=== PATIENT | male | born 1940 | race Caucasian/White ===

== ENCOUNTER 2017-11-28 03:41 | Outpatient (CLI) | payer MEDICARE, BC ==
[~2017-11-28 03:41] MED LIST: ADV50250 IH; ALBU18HF2 IH; ASPI-1265 PO; ATOR20TA PO; GABA-341 PO; NORCO10T PO; SULI150T50 PO
== END 2017-11-28 23:59 | disposition home or self-care (01) ==
LOC: DIABETIC 03:41
PROVIDERS: ATTEND Family Medicine
DX: E11.9 Type 2 diabetes mellitus without complications (principal); J44.9 Chronic obstructive pulmonary disease, unspecified; F17.200 Nicotine dependence, unspecified, uncomplicated
CPT/HCPCS: G0109

== ENCOUNTER 2017-12-12 02:52 | Outpatient (CLI) | payer MEDICARE, BC | END 2017-12-12 23:59 | disposition home or self-care (01) | LOC: DIABETIC 02:52 | PROVIDERS: ATTEND Family Medicine | DX: E11.9 Type 2 diabetes mellitus without complications (principal); J44.9 Chronic obstructive pulmonary disease, unspecified; F17.200 Nicotine dependence, unspecified, uncomplicated | CPT/HCPCS: G0109 ==

== ENCOUNTER 2018-01-07 01:53 | Outpatient (CLI) | payer MEDICARE, BC | END 2018-01-07 23:59 | disposition home or self-care (01) | LOC: DIABETIC 01:53 | PROVIDERS: ATTEND Family Medicine | DX: E11.9 Type 2 diabetes mellitus without complications (principal) | CPT/HCPCS: G0108 ==

== ENCOUNTER 2019-07-29 16:17 | Observation (INO) | payer MEDICARE, BC ==
[~2019-07-29] VITALS: Ht 152.4 cm; Wt 71.2 kg
[2019-07-29 16:54] LABS: BASOPHILS # (AUTO) 0.1 X10'3 (0-0.2); BASOPHILS % (AUTO) 0.9 % (0-1); EOSINOPHILS # (AUTO) 0.2 X10'3 (0-0.9); HEMATOCRIT 47.1 % (42.0-52.0); HEMOGLOBIN 15.9 g/dl (14.0-17.9); LYMPHOCYTES # (AUTO) 2.6 X10'3 (1.1-4.8); LYMPHOCYTES % (AUTO) 25.6 % (21-51); MEAN CORPUSCULAR HEMOGLOBIN 32.1 PG (27.0-31.0); MEAN CORPUSCULAR HGB CONC 33.7 g/dL (33.0-36.5); MEAN CORPUSCULAR VOLUME 95.3 FL (78-98); MEAN PLATELET VOLUME 8.8 FL (7.4-10.4); MONOCYTES # (AUTO) 0.8 X10'3 (0-0.9); MONOCYTES % (AUTO) 7.8 % (2-12); NEUTROPHILS # (AUTO) 6.5 X10'3 (1.8-7.7); NEUTROPHILS % (AUTO) 63.7 % (42-75); PLATELET COUNT 186 X10'3 (140-440); RED BLOOD COUNT 4.95 X10'6 (4.70-6.10); RED CELL DISTRIBUTION WIDTH 14.7 % (11.5-14.5); WHITE BLOOD COUNT 10.1 X10'3 (4.5-11.0)
[2019-07-29 17:03] LABS: PARTIAL THROMBOPLASTIN TIME 29 SECONDS (22-32)
[2019-07-29 17:05] LABS: ALANINE AMINOTRANSFERASE 18 U/L (12-78); ALBUMIN 3.8 G/DL (3.4-5.0); ALBUMIN/GLOBULIN RATIO 1.1 (1.1-1.5); ALKALINE PHOSPHATASE 90 IU/L (46-116); ANION GAP 8 (8-16); ASPARTATE AMINO TRANSFERASE 14 U/L (10-37); BILIRUBIN,TOTAL 0.6 MG/DL (0.1-1.0); BLOOD UREA NITROGEN 18 MG/DL (7-18); BUN/CREATININE RATIO 23.1 (5.4-32.0); CHLORIDE 104 MMOL/L (99-107); CREATININE 0.78 MG/DL (0.60-1.10); GLUCOSE 131 MG/DL (70-104); SODIUM 139 MMOL/L (135-145); TOTAL CARBON DIOXIDE 27.5 MMOL/L (24-32); TOTAL PROTEIN 7.4 G/DL (6.4-8.2); eGFR > 90 ML/MIN
[2019-07-29 18:13] LABS: MAGNESIUM 1.8 MG/DL (1.5-2.4); PHOSPHORUS 3.2 MG/DL (2.3-4.5)
[2019-07-29] MEDS ORDERED: dextrose 50%-water 50ml dispensing syringe IV PRN ×2 (19:45)
[2019-07-29] MEDS ORDERED: dextrose ORAL solution 15 GM/59 ML bottle PO PRN ×2 (19:45)
[2019-07-29] MEDS ORDERED: magnesium 4gm in 100ml NS 100 ML IV PRN (19:45)
[2019-07-29] MEDS ORDERED: magnesium Cl slow-release 64mg tablet PO PRN (19:45)
[2019-07-29] MEDS ORDERED: potassium CL 10mEq/100ml bag 100 ML IV PRN ×2 (19:45)
[2019-07-29] MEDS ORDERED: mag hydrox/Alum hydrox/simeth 30ml oral suspension PO PRN (19:45)
[2019-07-29] MEDS ORDERED: ondansetron/PF 4mg/2ml inj IV PRN (19:45)
[2019-07-29] MEDS ORDERED: acetaminophen 325mg tablet PO PRN (19:45)
[2019-07-29] MEDS ORDERED: insulin Lispro (HumaLOG) vial - multi-dose SQ SCH (19:45)
[2019-07-29] MEDS ORDERED: glucagon, human recombinant 1mg kit SUBCUT PRN (19:45)
[2019-07-29] MEDS ORDERED: potassium Cl 20 mEq SR tablet PO PRN ×2 (19:45)
[2019-07-29] MEDS ORDERED: magnesium 2GM in 50ml NS 50 ML IV PRN (19:45)
[2019-07-29] MEDS ORDERED: MESSAGE TO PHARMACY PO ONE (19:45)
[2019-07-29] MEDS ORDERED: DOXE10CA3 PO (20:04)
[2019-07-29] MEDS ORDERED: GABA-532 PO (20:04)
[2019-07-29 20:05] LABS: HEMOGLOBIN A1C 6.6 % (4.5-6.2)
--- NOTE | 2019-07-29 20:28 | NUR ---
Patient in room ED 5. I have received report from Clem NG and had the opportunity to ask questions and awaiting arrival of patient to the PCU unit.
--- NOTE | 2019-07-29 20:30 | NUR ---
Patient arrived from the ER at this time. He is alert and oriented and able to make his needs known. He was able to ambulate from the wheelchair to the bed with just standby assistance but he is steady on his feet. He denies having pain. His heart rate currently in the 40's and he is completely asymptomatic with this. He does have pacer pads in place and hooked up to the zoll monitor. His blood pressure is elevated at this time at 172/74. Notification to MD. Patient oriented to room and how to use call light system. Will continue to monitor.
[2019-07-29] MEDS ORDERED: METF-436 PO (20:33)
[2019-07-29] MEDS ORDERED: SULI150T50 PO (20:33)
[2019-07-29 20:35] VITALS: BP 172/74
--- NOTE | 2019-07-29 20:53 | NUR ---
PAGER ID: [phone] MESSAGE: Patient Joselito Minaya RM [id number] Patient just up from the ER and blood pressure is 172/74. Would you like him to get anything for this? Thank you. Dina NG ext. [phone]
[2019-07-29] MEDS ORDERED: insulin glargine (Lantus) pen - multi-dose SQ SCH (21:00)
[2019-07-29] MEDS ORDERED: hydrALAZINE 20mg/ml inj. IV ONE (21:10)
[2019-07-29] MEDS: normal saline 1000ml 1,000 ML IV SCH (21:15)
[2019-07-29] MEDS ORDERED: ASPI-611 PO (21:46)
[2019-07-29] MEDS ORDERED: KRIL1CAP29 PO (21:46)
[2019-07-29] MEDS ORDERED: GING550C4 PO (21:46)
[2019-07-29] MEDS ORDERED: TURM538C PO (21:46)
[2019-07-29] MEDS ORDERED: DIPH25CA83 PO (21:46)
[2019-07-29] MEDS ORDERED: MELA3TAB64 PO (21:46)
[2019-07-29] MEDS ORDERED: FLAX100032 PO (21:46)
--- NOTE | 2019-07-29 22:42 | NUR ---
patch to right eye from cataract surgery today, unable to assess. Addendum: 07/29/19 at 1744 by Dina Swenson RN Amended: Links added.
[2019-07-29 23:00] VITALS: BP 170/59
[2019-07-30] MEDS ORDERED: heparin, porcine 5000 units/ml vial SQ SCH
[2019-07-30 00:18] VITALS: BP 157/62
--- NOTE | 2019-07-30 00:19 | NUR ---
Blood pressure down to 157/62 after PRN Hydralazine.
[2019-07-30 03:00] VITALS: BP 171/58
--- NOTE | 2019-07-30 03:27 | NUR ---
PAGER ID: [phone] MESSAGE: Patient Joselito Minaya Rm [id number] Blood pressure elevated again at 171/58 with a repeat of 170/65. Do you want him to have anything else? Thank you. Dina NG ext. [phone]
[2019-07-30] MEDS: hydrALAZINE 20mg/ml inj. IV PRN ×2 (03:37→12:06)
[2019-07-30] MEDS ORDERED: Melatonin 3mg tablet PO PRN (04:05)
[2019-07-30 05:17] LABS: BASOPHILS # (AUTO) 0.1 X10'3 (0-0.2); BASOPHILS % (AUTO) 0.5 % (0-1); EOSINOPHILS % (AUTO) 0.4 % (0-6); HEMATOCRIT 47.9 % (42.0-52.0); HEMOGLOBIN 16.2 g/dl (14.0-17.9); LYMPHOCYTES # (AUTO) 2.2 X10'3 (1.1-4.8); LYMPHOCYTES % (AUTO) 18.5 % (21-51); MEAN CORPUSCULAR HEMOGLOBIN 32.2 PG (27.0-31.0); MEAN CORPUSCULAR HGB CONC 33.9 g/dL (33.0-36.5); MEAN PLATELET VOLUME 9.2 FL (7.4-10.4); MONOCYTES # (AUTO) 0.9 X10'3 (0-0.9); MONOCYTES % (AUTO) 7.1 % (2-12); NEUTROPHILS # (AUTO) 8.8 X10'3 (1.8-7.7); NEUTROPHILS % (AUTO) 73.5 % (42-75); PLATELET COUNT 189 X10'3 (140-440); RED BLOOD COUNT 5.05 X10'6 (4.70-6.10); RED CELL DISTRIBUTION WIDTH 14.5 % (11.5-14.5)
[2019-07-30 05:24] LABS: ALANINE AMINOTRANSFERASE 18 U/L (12-78); ALBUMIN 3.7 G/DL (3.4-5.0); ALKALINE PHOSPHATASE 86 IU/L (46-116); ANION GAP 13 (8-16); ASPARTATE AMINO TRANSFERASE 14 U/L (10-37); BILIRUBIN,TOTAL 0.7 MG/DL (0.1-1.0); BLOOD UREA NITROGEN 16 MG/DL (7-18); CALCIUM 8.9 MG/DL (8.5-10.1); CHLORIDE 106 MMOL/L (99-107); CREATININE 0.64 MG/DL (0.60-1.10); GLUCOSE 132 MG/DL (70-104); POTASSIUM 3.5 MMOL/L (3.5-5.1); SODIUM 141 MMOL/L (135-145); TOTAL CARBON DIOXIDE 21.9 MMOL/L (24-32); TOTAL PROTEIN 7.3 G/DL (6.4-8.2); eGFR > 90 ML/MIN
[2019-07-30 05:28] LABS: CHOL/HDL RATIO 3.5 (0.00-4.99); CHOLESTEROL 155 MG/DL (0-200); HDL CHOLESTEROL 44 MG/DL (35-60); LDL CHOLESTEROL 97 MG/DL (50-100); MAGNESIUM 1.7 MG/DL (1.5-2.4); TRIGLYCERIDES 79 MG/DL (20-135)
--- NOTE | 2019-07-30 05:42 | NUR ---
[place] documentation: I have reviewed and agree with all interventions, assessments performed and documented by Leti NG. [place]ee Medication Administration: For this medication-pass time frame, all medication were reviewed, dispensed, administered and documented per hospital policy by Leti NG.
[2019-07-30 06:00] VITALS: BP 171/64
--- NOTE | 2019-07-30 06:24 | NUR ---
Problems reprioritized. Patient report given, questions answered & plan of care reviewed with Delmis NG.
[2019-07-30] MEDS: normal saline 1000ml 1,000 ML IV SCH (06:29)
[2019-07-30] MEDS ORDERED: GINGER ROOT PO SCH (08:00)
[2019-07-30] MEDS ORDERED: K and/or MAG REPLACEMENT MC SCH (08:00)
[2019-07-30] MEDS ORDERED: aspirin 81mg tablet.DR PO SCH (08:00)
[2019-07-30] MEDS ORDERED: sulindac 150mg tablet PO SCH (08:00)
[2019-07-30] MEDS ORDERED: DHA PO SCH (08:00)
[2019-07-30] MEDS ORDERED: EPA PO SCH (08:00)
[2019-07-30] MEDS ORDERED: doxepin 10mg capsule PO SCH ×2 (08:00)
[2019-07-30] MEDS ORDERED: KRILL PO SCH (08:00)
[2019-07-30] MEDS ORDERED: LIPIDS PO SCH (08:00)
[2019-07-30] MEDS ORDERED: albuterol 2.5 MG/3 ML nebule NEB SCH (08:00)
[2019-07-30] MEDS ORDERED: non-formulary drug (Albuterol Sulfate (Ventolin Hfa) 2 PUFFS) IH SCH (08:00)
[2019-07-30] MEDS ORDERED: budesonide 0.5mg/2ml UD nebule IH SCH (08:00)
[2019-07-30] MEDS ORDERED: FLAXSEED OIL PO SCH (08:00)
[2019-07-30] MEDS ORDERED: gabapentin 300mg capsule PO SCH (08:00)
[2019-07-30] MEDS ORDERED: OMEGA PO SCH (08:00)
[2019-07-30] MEDS ORDERED: lisinopril 5mg tablet PO ONE (09:20)
--- NOTE | 2019-07-30 09:22 | NUR ---
Received orders from Dr. Zarco for Lisinopril x1 now for HTN and add on PBNP lab test
--- NOTE | 2019-07-30 09:54 | NUR ---
DM consult: Patient's A1c is 6.6; DM education not warranted at this time. Will continue to follow. Addendum: 07/30/19 at [address] Amended: Links added.
[2019-07-30] MEDS ORDERED: furosemide 20 MG/2 ML vial IV ONE (09:55)
[2019-07-30] MEDS ORDERED: FURO-150 PO (09:58)
[2019-07-30] MEDS ORDERED: LISI-604 PO (09:58)
--- NOTE | 2019-07-30 13:00 | NUR ---
pt stable for discharge per md orders, discharge instructions reviewed w/ pt and daughter and all questions answered, new medication prescription called in to [facility] [address] per pt preference, tele monitor 50 returned, PIV dc'ed and clean dry dressing in place, pt wheeled down to [facility] w/ hospital staff, pt discharge at 1230 w/ daughter in private vehicle, all belongings w/ pt at time of discharge
[2019-07-30] MEDS ORDERED: atorvastatin 20mg tablet PO SCH (21:00)
== END 2019-07-30 13:05 | disposition home health service (06) ==
LOC: ER 16:18 → ED HOLD 19:43 → EDBEDREQ 20:14 → PCU 3S 20:38
PROVIDERS: ADMIT Family Medicine; ATTEND Internal Medicine
DX: R00.1 Bradycardia, unspecified (principal); I10 Essential (primary) hypertension; E11.9 Type 2 diabetes mellitus without complications; I44.2 Atrioventricular block, complete; E78.5 Hyperlipidemia, unspecified; J44.9 Chronic obstructive pulmonary disease, unspecified; E78.00 Pure hypercholesterolemia, unspecified; Z79.82 Long term (current) use of aspirin; Z79.84 Long term (current) use of oral hypoglycemic drugs; Z79.899 Other long term (current) drug therapy; Z87.891 Personal history of nicotine dependence; Z98.41 Cataract extraction status, right eye
CPT/HCPCS: 36415; 71045; 80053; 80061; 82948; 83036; 83735; 83880; 84100; 84443; 84484; 85025; 85610; 85730; 87081; 93005; 93306; 94640; 94760; 96374; 96375; 96376; 99284; G0378; J0360; J1940; J7030; J1815; J7626

== ENCOUNTER 2021-03-14 22:21 | Inpatient (IN) | payer MEDICARE, BC ==
[~2021-03-14] VITALS: Ht 152.4 cm; Wt 70.0 kg
[~2021-03-14 22:21] MED LIST changes: -ASPI-1265 PO; +ASPI-611 PO; +DIPH25CA83 PO; +DOXE10CA3 PO; +FLAX100032 PO; +FURO-150 PO; -GABA-341 PO; +GABA-532 PO; +GING550C4 PO; +KRIL1CAP29 PO; +LISI-790 PO; +MELA3TAB39 PO; +METF-436 PO; +TURM538C PO
[2021-03-14] MEDS ORDERED: normal saline 1000ml 1,000 ML IV ONE ×2 (22:35→23:25)
[2021-03-14 22:53] LABS: BASOPHILS # (AUTO) 0.1 X10'3 (0-0.2); BASOPHILS % (AUTO) 0.6 % (0-1); EOSINOPHILS # (AUTO) 0.2 X10'3 (0-0.9); EOSINOPHILS % (AUTO) 1.4 % (0-6); HEMATOCRIT 33.6 % (42.0-52.0); LYMPHOCYTES # (AUTO) 1.2 X10'3 (1.1-4.8); LYMPHOCYTES % (AUTO) 7.9 % (21-51); MEAN CORPUSCULAR HEMOGLOBIN 31.9 PG (27.0-31.0); MEAN CORPUSCULAR HGB CONC 32.7 g/dL (33.0-36.5); MEAN CORPUSCULAR VOLUME 97.6 FL (78-98); MEAN PLATELET VOLUME 8.7 FL (7.4-10.4); MONOCYTES # (AUTO) 0.9 X10'3 (0-0.9); MONOCYTES % (AUTO) 6.1 % (2-12); NEUTROPHILS # (AUTO) 12.9 X10'3 (1.8-7.7); PLATELET COUNT 196 X10'3 (140-440); RED BLOOD COUNT 3.45 X10'6 (4.70-6.10); RED CELL DISTRIBUTION WIDTH 13.8 % (11.5-14.5); WHITE BLOOD COUNT 15.3 X10'3 (4.5-11.0)
--- NOTE | 2021-03-14 23:00 | NUR ---
PT TO CT WITH RN AND EXECUTIVE HOUSEKEEPER
[2021-03-14 23:05] LABS: ALANINE AMINOTRANSFERASE 14 U/L (12-78); ALBUMIN 3.2 G/DL (3.4-5.0); ALBUMIN/GLOBULIN RATIO 0.9 (1.1-1.5); ALKALINE PHOSPHATASE 100 IU/L (46-116); ANION GAP 16 (8-16); ASPARTATE AMINO TRANSFERASE 12 U/L (10-37); BILIRUBIN,TOTAL 0.3 MG/DL (0.1-1.0); BLOOD UREA NITROGEN 95 MG/DL (7-18); BUN/CREATININE RATIO 17.6 (5.4-32.0); CHLORIDE 101 MMOL/L (99-107); CREATININE 5.41 MG/DL (0.60-1.10); GLUCOSE 160 MG/DL (70-104); MAGNESIUM 1.7 MG/DL (1.5-2.4); POTASSIUM 5.7 MMOL/L (3.5-5.1); SODIUM 135 MMOL/L (135-145); TOTAL CARBON DIOXIDE 17.6 MMOL/L (24-32); TOTAL PROTEIN 6.6 G/DL (6.4-8.2); eGFR 10 ML/MIN
--- NOTE | 2021-03-14 23:08 | NUR ---
PT BACK FROM CT
[2021-03-14] MEDS ORDERED: calcium chloride 100 MG/1 ML inj IV ONE (23:35)
[2021-03-14 23:45] LABS: TROPONIN I < 0.04 NG/ML (0.0-0.05)
[2021-03-15] MEDS ORDERED: morphine 2 MG/ML inj. syringe IV PRN ×2 (00:35)
[2021-03-15] MEDS ORDERED: ondansetron/PF 4mg/2ml inj IV PRN (00:35)
[2021-03-15] MEDS ORDERED: dextrose 50%-water 50ml dispensing syringe IV PRN ×2 (00:35)
[2021-03-15] MEDS ORDERED: LIDOcaine 2% 10ml TOPICAL JELLY (Urojet) TP ONE (00:35)
[2021-03-15] MEDS ORDERED: magnesium hydroxide 30ml (MOM) UD suspension PO PRN (00:35)
[2021-03-15] MEDS ORDERED: mag hydrox/Alum hydrox/simeth 30ml oral suspension PO PRN (00:35)
[2021-03-15] MEDS ORDERED: dextrose ORAL solution 15 GM/59 ML bottle PO PRN ×2 (00:35)
[2021-03-15] MEDS ORDERED: acetaminophen 325mg tablet PO PRN ×2 (00:35)
[2021-03-15] MEDS ORDERED: glucagon, human recombinant 1mg kit SUBCUT PRN (00:35)
[2021-03-15] MEDS ORDERED: MESSAGE TO PHARMACY PO ONE (00:35)
[2021-03-15 01:09] LABS: HEMOGLOBIN A1C 7.8 % (4.5-6.2)
[2021-03-15] MEDS ORDERED: normal saline 1000ML IV soln IVB ONE (01:20)
[2021-03-15] MEDS ORDERED: calcium chloride 100 MG/1 ML inj IV ONE (01:20)
[2021-03-15 01:28] LABS: CLARITY,URINE CLEAR (Clear); COLOR,URINE YELLOW (Yellow); GLUCOSE, URINE NEGATIVE (Neg); KETONES,URINE NEGATIVE (Neg); LEUKOCYTE ESTERASE ,URINE NEGATIVE (Neg); NITRITES, URINE NEGATIVE (Neg); OCCULT BLOOD,URINE NEGATIVE (Neg); PH,URINE 5.5 (4.8-8.0); PROTEIN,URINE NEGATIVE (Neg); UROBILINOGEN,URINE 0.2 E.U/dL (0.2-1.0)
[2021-03-15] MEDS: normal saline 1000ml 1,000 ML IV SCH ×3 (01:33→20:13)
[2021-03-15 01:39] LABS: UA COLLECTION TYPE VOIDED
[2021-03-15] MEDS ORDERED: normal saline 1000ml 1,000 ML IV ONE (02:45)
--- NOTE | 2021-03-15 04:35 | NUR ---
placed on telemetry. number 49. oriented to room 4693S. skin check. call light in reach. noted BP 101/47 HR 86. assumed care of patient.
[2021-03-15 04:37] VITALS: BP 101/47
[2021-03-15 06:00] VITALS: BP 92/45
--- NOTE | 2021-03-15 06:10 | NUR ---
received report from shirley villa
[2021-03-15] MEDS: heparin, porcine 5000 units/ml vial SQ SCH ×2 (07:35→20:15)
--- NOTE | 2021-03-15 09:22 | NUR ---
DM Consult: Pt A1C 7.8 appropriate given age. Addendum: 03/15/21 at [address] Amended: Links added.
[2021-03-15 10:00] VITALS: BP 96/48
[2021-03-15] MEDS ORDERED: METO-395 PO (10:47)
[2021-03-15] MEDS ORDERED: HYDR-3972 PO (10:47)
[2021-03-15] MEDS ORDERED: METF-438 PO (10:47)
[2021-03-15] MEDS ORDERED: FURO40TA4 PO (10:47)
[2021-03-15] MEDS ORDERED: ALBU18HF2 PO (10:47)
[2021-03-15] MEDS ORDERED: SULI150T50 PO (10:47)
[2021-03-15] MEDS ORDERED: DOXE6TAB4 PO (10:47)
[2021-03-15] MEDS ORDERED: GABA300C PO (10:47)
[2021-03-15] MEDS ORDERED: SACU1TAB PO (10:47)
[2021-03-15] MEDS ORDERED: SITA50TA7 PO (10:47)
[2021-03-15] MEDS ORDERED: ATOR20TA66 PO (10:47)
[2021-03-15] MEDS ORDERED: POTA20TA19 PO (10:47)
[2021-03-15] MEDS ORDERED: FLUT1BLS13 INH (10:47)
[2021-03-15] MEDS ORDERED: SPIR25TA5 PO (10:47)
--- NOTE | 2021-03-15 11:01 | NUR ---
has seen the green skin under halter monitor, continue to monitor
[2021-03-15] MEDS: HYDROcodone/acetaminophen 10/325mg tab PO PRN (11:35)
[2021-03-15] MEDS: atorvastatin 20mg tablet PO SCH (11:35)
[2021-03-15] MEDS: albuterol 2.5 MG/3 ML nebule NEB SCH ×2 (15:00→19:14)
[2021-03-15 16:24] LABS: BASOPHILS # (AUTO) 0.1 X10'3 (0-0.2); BASOPHILS % (AUTO) 0.7 % (0-1); EOSINOPHILS # (AUTO) 0.1 X10'3 (0-0.9); EOSINOPHILS % (AUTO) 1.4 % (0-6); HEMATOCRIT 31.3 % (42.0-52.0); HEMOGLOBIN 10.5 g/dl (14.0-17.9); LYMPHOCYTES % (AUTO) 12.1 % (21-51); MEAN CORPUSCULAR HEMOGLOBIN 32.8 PG (27.0-31.0); MEAN CORPUSCULAR HGB CONC 33.5 g/dL (33.0-36.5); MEAN CORPUSCULAR VOLUME 98.1 FL (78-98); MEAN PLATELET VOLUME 8.7 FL (7.4-10.4); MONOCYTES # (AUTO) 0.8 X10'3 (0-0.9); MONOCYTES % (AUTO) 9.3 % (2-12); NEUTROPHILS # (AUTO) 6.2 X10'3 (1.8-7.7); NEUTROPHILS % (AUTO) 76.5 % (42-75); PLATELET COUNT 150 X10'3 (140-440); RED BLOOD COUNT 3.19 X10'6 (4.70-6.10); WHITE BLOOD COUNT 8.1 X10'3 (4.5-11.0)
[2021-03-15 16:41] LABS: ALBUMIN 2.9 G/DL (3.4-5.0); ANION GAP 14 (8-16); BLOOD UREA NITROGEN 74 MG/DL (7-18); BUN/CREATININE RATIO 20.8 (5.4-32.0); CALCIUM 8.2 MG/DL (8.5-10.1); CHLORIDE 109 MMOL/L (99-107); CREATININE 3.55 MG/DL (0.60-1.10); GLUCOSE 130 MG/DL (70-104); POTASSIUM 4.8 MMOL/L (3.5-5.1); SODIUM 140 MMOL/L (135-145); TOTAL CARBON DIOXIDE 16.8 MMOL/L (24-32); eGFR 17 ML/MIN
--- NOTE | 2021-03-15 18:27 | NUR ---
gave report to shirley reynoso
--- NOTE | 2021-03-15 18:32 | NUR ---
Pt. requesting breathing tx. Paged RT.
[2021-03-15 19:00] VITALS: BP 101/50
[2021-03-15] MEDS: budesonide 0.5mg/2ml UD nebule IH SCH (19:14)
[2021-03-15] MEDS ORDERED: [UNRECOGNIZED DRUG - OTHER] INH SCH (20:00)
[2021-03-15] MEDS ORDERED: FLUTICASONE PROPION INH SCH (20:00)
[2021-03-15] MEDS ORDERED: SALMETEROL INH SCH (20:00)
[2021-03-15] MEDS: DOXEPIN 6 MG PO SCH (20:15)
[2021-03-15] MEDS: insulin glargine (Lantus) pen - multi-dose SQ SCH (20:16)
[2021-03-15] MEDS: HYDROcodone/acetaminophen 5mg/325mg tablet PO PRN (20:48)
--- NOTE | 2021-03-15 22:28 | NUR ---
I have received report from Negin NG and had the opportunity to ask questions and assume patient care.
[2021-03-16] VITALS: BP 102/53
[2021-03-16] MEDS: albuterol 2.5 MG/3 ML nebule NEB SCH ×4 (03:10→20:35)
[2021-03-16] MEDS: normal saline 1000ml 1,000 ML IV SCH ×2 (04:16→17:11)
--- NOTE | 2021-03-16 06:27 | NUR ---
Problems reprioritized. Patient report given, questions answered & plan of care reviewed with Angelica NG.
[2021-03-16 06:52] LABS: BASOPHILS # (AUTO) 0.1 X10'3 (0-0.2); BASOPHILS % (AUTO) 0.7 % (0-1); EOSINOPHILS # (AUTO) 0.2 X10'3 (0-0.9); EOSINOPHILS % (AUTO) 2.7 % (0-6); HEMATOCRIT 31.1 % (42.0-52.0); HEMOGLOBIN 10.3 g/dl (14.0-17.9); LYMPHOCYTES # (AUTO) 1.1 X10'3 (1.1-4.8); LYMPHOCYTES % (AUTO) 14.6 % (21-51); MEAN CORPUSCULAR HEMOGLOBIN 33.6 PG (27.0-31.0); MEAN CORPUSCULAR HGB CONC 33.1 g/dL (33.0-36.5); MEAN CORPUSCULAR VOLUME 101.4 FL (78-98); MEAN PLATELET VOLUME 8.2 FL (7.4-10.4); MONOCYTES # (AUTO) 0.7 X10'3 (0-0.9); MONOCYTES % (AUTO) 8.6 % (2-12); NEUTROPHILS # (AUTO) 5.6 X10'3 (1.8-7.7); NEUTROPHILS % (AUTO) 73.4 % (42-75); PLATELET COUNT 134 X10'3 (140-440); RED BLOOD COUNT 3.06 X10'6 (4.70-6.10); RED CELL DISTRIBUTION WIDTH 14.5 % (11.5-14.5); WHITE BLOOD COUNT 7.6 X10'3 (4.5-11.0)
[2021-03-16 06:55] VITALS: BP 117/62
[2021-03-16 07:02] LABS: ALBUMIN 2.8 G/DL (3.4-5.0); ANION GAP 16 (8-16); BLOOD UREA NITROGEN 58 MG/DL (7-18); BUN/CREATININE RATIO 24.9 (5.4-32.0); CALCIUM 7.9 MG/DL (8.5-10.1); CHLORIDE 111 MMOL/L (99-107); CREATININE 2.33 MG/DL (0.60-1.10); GLUCOSE 110 MG/DL (70-104); POTASSIUM 4.2 MMOL/L (3.5-5.1); SODIUM 144 MMOL/L (135-145); TOTAL CARBON DIOXIDE 16.6 MMOL/L (24-32); eGFR 27 ML/MIN
[2021-03-16] MEDS: heparin, porcine 5000 units/ml vial SQ SCH ×2 (07:02→20:23)
[2021-03-16] MEDS: atorvastatin 20mg tablet PO SCH (07:02)
[2021-03-16] MEDS: budesonide 0.5mg/2ml UD nebule IH SCH ×2 (07:34→20:35)
[2021-03-16 10:54] VITALS: BP 107/54
[2021-03-16] MEDS: HYDROcodone/acetaminophen 5mg/325mg tablet PO PRN ×2 (14:21→20:24)
--- NOTE | 2021-03-16 15:56 | NUR ---
PAGER ID: [phone] MESSAGE: Yeison Minaya [id number]: daughter Deirdre would like a phone call/update [phone]. thank you!
--- NOTE | 2021-03-16 17:46 | NUR ---
patients life vest is charging at bedside. his daughter brought in one battery.
[2021-03-16 17:48] VITALS: BP 119/70
--- NOTE | 2021-03-16 18:44 | NUR ---
Problems reprioritized. Patient report given, questions answered & plan of care reviewed with HERNANDEZ mane.
[2021-03-16] MEDS: DOXEPIN 6 MG PO SCH (21:00)
[2021-03-16] MEDS: insulin glargine (Lantus) pen - multi-dose SQ SCH (21:00)
[2021-03-16 22:40] VITALS: BP 110/67
--- NOTE | 2021-03-17 00:33 | NUR ---
NOTED PATIENT INCREASINGLY SHORT OF BREATH THIS EVENING. PER DR. MARTINEZ HOLD IV FLUIDS TONIGHT.
[2021-03-17] MEDS: albuterol 2.5 MG/3 ML nebule NEB SCH ×2 (02:24→07:26)
[2021-03-17] MEDS: normal saline 1000ml 1,000 ML IV SCH (02:35)
[2021-03-17] MEDS: HYDROcodone/acetaminophen 5mg/325mg tablet PO PRN (05:35)
[2021-03-17 06:14] LABS: BASOPHILS # (AUTO) 0.1 X10'3 (0-0.2); BASOPHILS % (AUTO) 0.5 % (0-1); EOSINOPHILS # (AUTO) 0.2 X10'3 (0-0.9); EOSINOPHILS % (AUTO) 1.5 % (0-6); HEMOGLOBIN 10.4 g/dl (14.0-17.9); LYMPHOCYTES # (AUTO) 0.9 X10'3 (1.1-4.8); LYMPHOCYTES % (AUTO) 7.9 % (21-51); MEAN CORPUSCULAR HEMOGLOBIN 32.7 PG (27.0-31.0); MEAN CORPUSCULAR HGB CONC 33.5 g/dL (33.0-36.5); MEAN CORPUSCULAR VOLUME 97.5 FL (78-98); MEAN PLATELET VOLUME 8.8 FL (7.4-10.4); MONOCYTES # (AUTO) 0.8 X10'3 (0-0.9); MONOCYTES % (AUTO) 7.3 % (2-12); NEUTROPHILS # (AUTO) 9.4 X10'3 (1.8-7.7); NEUTROPHILS % (AUTO) 82.8 % (42-75); PLATELET COUNT 152 X10'3 (140-440); RED BLOOD COUNT 3.17 X10'6 (4.70-6.10); WHITE BLOOD COUNT 11.4 X10'3 (4.5-11.0)
[2021-03-17 06:42] LABS: ALBUMIN 2.9 G/DL (3.4-5.0); ANION GAP 14 (8-16); BLOOD UREA NITROGEN 35 MG/DL (7-18); BUN/CREATININE RATIO 23.3 (5.4-32.0); CALCIUM 8.2 MG/DL (8.5-10.1); CHLORIDE 111 MMOL/L (99-107); GLUCOSE 105 MG/DL (70-104); POTASSIUM 3.9 MMOL/L (3.5-5.1); SODIUM 142 MMOL/L (135-145); eGFR 45 ML/MIN
[2021-03-17] MEDS: budesonide 0.5mg/2ml UD nebule IH SCH (07:26)
[2021-03-17] MEDS: atorvastatin 20mg tablet PO SCH (08:09)
[2021-03-17] MEDS: heparin, porcine 5000 units/ml vial SQ SCH ×2 (08:10→19:49)
[2021-03-17] MEDS: HYDROcodone/acetaminophen 10/325mg tab PO PRN ×2 (14:19→19:52)
[2021-03-17] MEDS ORDERED: furosemide 20MG tablet PO ONE (14:30)
[2021-03-17] MEDS: lactose-reduced food (Ensure Enlive) - 237ml bottle PO SCH (18:00)
[2021-03-17 18:24] VITALS: BP 111/65
[2021-03-17] MEDS: insulin glargine (Lantus) pen - multi-dose SQ SCH (21:00)
[2021-03-17] MEDS: DOXEPIN 6 MG PO SCH (21:00)
[2021-03-17] MEDS: sacubitril/valsartan 24mg-26mg tablet PO SCH (21:00)
[2021-03-17 22:00] VITALS: BP 132/66
--- NOTE | 2021-03-18 02:00 | NUR ---
NOTED PATIENT INCREASING SHORT OF BREATH. LAST NIGHT PATIENT WAS SHORT OF BREATH WITH EXERTION AND TONIGHT I FOUND HIM WITH SHALLOW LABORED RESPIRATIONS OF 32/MINUTE AT REST. PATIENT STATES HE FEELS LIKE HE CANT CATCH HIS BREATH. SPO2 98% ON ROOM AIR. DR MARTINEZ CALLED AND ORDERED TO PLACE PATIENT ON OXYGEN AND AMBULATE. PATIENT UNABLE TO AMBULATE BUT WAS ABLE TO DANGLE ON EDGE OF THE BED AFTER OXYGEN WAS APPLIED. HE WAS UNABLE TO TRANSFER TO CHAIR DUE TO RESPIRATORY STATUS. APPROXIMATELY 15 MINUTES LATER THE PATIENT WAS ASSISTED BACK IN BED. HE WAS STILL HYPERVENTILATING AND SAID HE FELT SHORT OF BREATH. AFTER 10 MINUTES OF LAYING IN BED PATIENTS RESPIRATIONS 22, UNLABORED AND HE STATES HE IS STARTING TO FEEL BETTER. OF NOTE, PATIENT DID NOT WANT HIS LIFE VEST APPLIED AT THIS TIME.
[2021-03-18] MEDS: albuterol 2.5 MG/3 ML nebule NEB SCH ×4 (05:05→20:02)
[2021-03-18] MEDS: budesonide 0.5mg/2ml UD nebule IH SCH ×2 (05:13→07:53)
[2021-03-18 06:00] VITALS: BP 108/72
[2021-03-18] MEDS: furosemide 20MG tablet PO SCH (07:30)
[2021-03-18] MEDS: atorvastatin 20mg tablet PO SCH (07:31)
[2021-03-18] MEDS: heparin, porcine 5000 units/ml vial SQ SCH ×2 (07:31→20:36)
[2021-03-18] MEDS: HYDROcodone/acetaminophen 5mg/325mg tablet PO PRN ×3 (07:31→17:18)
[2021-03-18 08:12] LABS: BASOPHILS % (AUTO) 0.2 % (0-1); EOSINOPHILS % (AUTO) 0 % (0-6); HEMATOCRIT 34.1 % (42.0-52.0); HEMOGLOBIN 11.3 g/dl (14.0-17.9); LYMPHOCYTES # (AUTO) 0.9 X10'3 (1.1-4.8); LYMPHOCYTES % (AUTO) 5.2 % (21-51); MEAN CORPUSCULAR HEMOGLOBIN 32.4 PG (27.0-31.0); MEAN CORPUSCULAR HGB CONC 33.1 g/dL (33.0-36.5); MEAN CORPUSCULAR VOLUME 97.9 FL (78-98); MEAN PLATELET VOLUME 9.3 FL (7.4-10.4); MONOCYTES % (AUTO) 5.6 % (2-12); NEUTROPHILS # (AUTO) 15.6 X10'3 (1.8-7.7); PLATELET COUNT 180 X10'3 (140-440); RED BLOOD COUNT 3.48 X10'6 (4.70-6.10); WHITE BLOOD COUNT 17.5 X10'3 (4.5-11.0)
[2021-03-18 08:18] LABS: ALANINE AMINOTRANSFERASE 17 U/L (12-78); ALBUMIN 3.1 G/DL (3.4-5.0); ALBUMIN/GLOBULIN RATIO 0.8 (1.1-1.5); ALKALINE PHOSPHATASE 91 IU/L (46-116); ANION GAP 18 (8-16); ASPARTATE AMINO TRANSFERASE 15 U/L (10-37); BILIRUBIN,TOTAL 0.5 MG/DL (0.1-1.0); BLOOD UREA NITROGEN 28 MG/DL (7-18); BUN/CREATININE RATIO 22.2 (5.4-32.0); CALCIUM 8.6 MG/DL (8.5-10.1); CHLORIDE 106 MMOL/L (99-107); CREATININE 1.26 MG/DL (0.60-1.10); GLUCOSE 185 MG/DL (70-104); POTASSIUM 3.7 MMOL/L (3.5-5.1); SODIUM 144 MMOL/L (135-145); TOTAL PROTEIN 6.9 G/DL (6.4-8.2); eGFR 55 ML/MIN
[2021-03-18] MEDS: sacubitril/valsartan 24mg-26mg tablet PO SCH ×2 (08:38→20:35)
[2021-03-18] MEDS: lactose-reduced food (Ensure Enlive) - 237ml bottle PO SCH ×2 (08:39→13:03)
--- NOTE | 2021-03-18 09:19 | NUR ---
PAGER ID: [phone] MESSAGE: Eleanor [phone] - re [phone] Mar[place], CXR and urine was clear, do you want blood cultures prior to start of antibiotics?
[2021-03-18] MEDS: CefTRIAXone 2gm/D5W 50ml BAG 50 ML IV SCH (11:39)
[2021-03-18] MEDS: insulin Lispro (HumaLOG) vial - multi-dose SQ SCH ×2 (12:59→19:06)
[2021-03-18 13:19] LABS: BASOPHILS # (AUTO) 0.1 X10'3 (0-0.2); BASOPHILS % (AUTO) 0.4 % (0-1); EOSINOPHILS % (AUTO) 0 % (0-6); HEMATOCRIT 35.5 % (42.0-52.0); HEMOGLOBIN 11.9 g/dl (14.0-17.9); LYMPHOCYTES # (AUTO) 0.9 X10'3 (1.1-4.8); LYMPHOCYTES % (AUTO) 4.6 % (21-51); MEAN CORPUSCULAR HEMOGLOBIN 32.5 PG (27.0-31.0); MEAN CORPUSCULAR HGB CONC 33.4 g/dL (33.0-36.5); MEAN CORPUSCULAR VOLUME 97.2 FL (78-98); MEAN PLATELET VOLUME 8.9 FL (7.4-10.4); MONOCYTES % (AUTO) 5.3 % (2-12); NEUTROPHILS # (AUTO) 17.5 X10'3 (1.8-7.7); NEUTROPHILS % (AUTO) 89.7 % (42-75); PLATELET COUNT 177 X10'3 (140-440); RED BLOOD COUNT 3.65 X10'6 (4.70-6.10); WHITE BLOOD COUNT 19.5 X10'3 (4.5-11.0)
[2021-03-18 17:29] LABS: CLARITY,URINE SLIGHTLY CLOUDY (Clear); COLOR,URINE YELLOW (Yellow); GLUCOSE, URINE 500 mg/dl (Neg); KETONES,URINE TRACE mg/dl (Neg); LEUKOCYTE ESTERASE ,URINE MODERATE (Neg); NITRITES, URINE POSITIVE (Neg); OCCULT BLOOD,URINE MODERATE (Neg); PROTEIN,URINE TRACE mg/dl (Neg); UROBILINOGEN,URINE 0.2 E.U/dL (0.2-1.0)
[2021-03-18 17:31] LABS: UA COLLECTION TYPE CLN CATCH MIDSTREAM
[2021-03-18 17:33] LABS: BACTERIA,URINE 3+ /HPF (Neg); MUCUS STRANDS FEW /LPF (Neg); SQUAMOUS EPITHELIAL CELL,UR FEW /LPF (FEW); WBC,URINE 50-100 /HPF (0-4)
--- NOTE | 2021-03-18 17:54 | NUR ---
PAGER ID: [phone] MESSAGE: Eleanor [phone] - re [phone] Schreiber. CRANDALL results are in for your review.
[2021-03-18 18:00] VITALS: BP 120/79
[2021-03-18] MEDS: lactobacillus rhamnosus 10,000 MMU CELLS/CAPSULE PO SCH (20:35)
[2021-03-18] MEDS: DOXEPIN 6 MG PO SCH (20:35)
[2021-03-18] MEDS: insulin glargine (Lantus) pen - multi-dose SQ SCH (21:43)
[2021-03-18 22:00] VITALS: BP 119/54
[2021-03-19] MEDS: HYDROcodone/acetaminophen 5mg/325mg tablet PO PRN ×3 (01:48→20:04)
[2021-03-19] MEDS: albuterol 2.5 MG/3 ML nebule NEB SCH ×4 (03:13→20:45)
--- NOTE | 2021-03-19 03:28 | NUR ---
security tech called to say that patient was in vtach. ran in to see that patient was wide awake, alert and not in pain. Nursing tube drawing supervisor was with me at this time - he said he would go down to tele to check rhythm. Did EKG - with many tremors and artifact. Parveen came back up to say that telecom sales consultant read artifact as Vtach. patient doing fine.
--- NOTE | 2021-03-19 06:29 | NUR ---
Problems reprioritized. Patient report given, questions answered & plan of care reviewed with Miguel RN.
[2021-03-19 07:13] VITALS: BP 120/69
[2021-03-19] MEDS: CefTRIAXone 2gm/D5W 50ml BAG 50 ML IV SCH (07:30)
[2021-03-19] MEDS: furosemide 20MG tablet PO SCH (07:31)
[2021-03-19] MEDS: heparin, porcine 5000 units/ml vial SQ SCH ×2 (07:31→20:03)
[2021-03-19] MEDS: sacubitril/valsartan 24mg-26mg tablet PO SCH ×2 (07:31→20:03)
[2021-03-19] MEDS: lactobacillus rhamnosus 10,000 MMU CELLS/CAPSULE PO SCH ×2 (07:32→20:03)
[2021-03-19] MEDS: atorvastatin 20mg tablet PO SCH (07:32)
[2021-03-19 07:33] LABS: BASOPHILS % (AUTO) 0.2 % (0-1); EOSINOPHILS # (AUTO) 0.1 X10'3 (0-0.9); EOSINOPHILS % (AUTO) 0.3 % (0-6); HEMOGLOBIN 10.9 g/dl (14.0-17.9); LYMPHOCYTES # (AUTO) 1.4 X10'3 (1.1-4.8); LYMPHOCYTES % (AUTO) 8.5 % (21-51); MEAN CORPUSCULAR HEMOGLOBIN 32.3 PG (27.0-31.0); MEAN CORPUSCULAR HGB CONC 33.1 g/dL (33.0-36.5); MEAN CORPUSCULAR VOLUME 97.7 FL (78-98); MEAN PLATELET VOLUME 9.3 FL (7.4-10.4); MONOCYTES # (AUTO) 1.5 X10'3 (0-0.9); MONOCYTES % (AUTO) 8.9 % (2-12); NEUTROPHILS # (AUTO) 13.8 X10'3 (1.8-7.7); NEUTROPHILS % (AUTO) 82.1 % (42-75); PLATELET COUNT 181 X10'3 (140-440); RED BLOOD COUNT 3.38 X10'6 (4.70-6.10); RED CELL DISTRIBUTION WIDTH 14.1 % (11.5-14.5); WHITE BLOOD COUNT 16.8 X10'3 (4.5-11.0)
[2021-03-19] MEDS ORDERED: CefTRIAXone 2gm/D5W 50ml BAG 50 ML IV SCH (08:00)
[2021-03-19 08:11] LABS: ALANINE AMINOTRANSFERASE 24 U/L (12-78); ALBUMIN 2.6 G/DL (3.4-5.0); ALBUMIN/GLOBULIN RATIO 0.7 (1.1-1.5); ALKALINE PHOSPHATASE 87 IU/L (46-116); ANION GAP 14 (8-16); ASPARTATE AMINO TRANSFERASE 21 U/L (10-37); BILIRUBIN,TOTAL 0.3 MG/DL (0.1-1.0); BLOOD UREA NITROGEN 26 MG/DL (7-18); BUN/CREATININE RATIO 22.8 (5.4-32.0); CALCIUM 8.1 MG/DL (8.5-10.1); CHLORIDE 107 MMOL/L (99-107); CREATININE 1.14 MG/DL (0.60-1.10); GLUCOSE 128 MG/DL (70-104); POTASSIUM 3.5 MMOL/L (3.5-5.1); SODIUM 145 MMOL/L (135-145); TOTAL CARBON DIOXIDE 24.3 MMOL/L (24-32); TOTAL PROTEIN 6.4 G/DL (6.4-8.2); eGFR 61 ML/MIN
[2021-03-19] MEDS: insulin Lispro (HumaLOG) vial - multi-dose SQ SCH ×3 (08:33→18:58)
[2021-03-19] MEDS ORDERED: ampicillin inj 2 GM in normal saline 100ml IV soln 100 ML IV SCH (14:00)
[2021-03-19 18:00] VITALS: BP 113/49
[2021-03-19] MEDS: DOXEPIN 6 MG PO SCH (20:03)
[2021-03-19] MEDS: insulin glargine (Lantus) pen - multi-dose SQ SCH (21:24)
[2021-03-19 22:00] VITALS: BP 113/62
[2021-03-20] MEDS: HYDROcodone/acetaminophen 5mg/325mg tablet PO PRN ×5 (01:26→23:52)
[2021-03-20] MEDS: albuterol 2.5 MG/3 ML nebule NEB SCH ×4 (03:00→20:13)
[2021-03-20 06:00] VITALS: BP 122/77
--- NOTE | 2021-03-20 06:21 | NUR ---
Problems reprioritized. Patient report given, questions answered & plan of care reviewed with HERNANDEZ Nath.
--- NOTE | 2021-03-20 06:35 | NUR ---
Patient in room ORTHO 4009A. I have received report from HERNANDEZ MARCH and had the opportunity to ask questions and assume patient care.
[2021-03-20 07:15] LABS: BASOPHILS % (AUTO) 0.3 % (0-1); EOSINOPHILS # (AUTO) 0.2 X10'3 (0-0.9); EOSINOPHILS % (AUTO) 1.5 % (0-6); HEMATOCRIT 33.2 % (42.0-52.0); HEMOGLOBIN 11.3 g/dl (14.0-17.9); LYMPHOCYTES # (AUTO) 1.4 X10'3 (1.1-4.8); LYMPHOCYTES % (AUTO) 13.2 % (21-51); MEAN CORPUSCULAR HEMOGLOBIN 33.1 PG (27.0-31.0); MEAN CORPUSCULAR HGB CONC 34.1 g/dL (33.0-36.5); MEAN PLATELET VOLUME 9.5 FL (7.4-10.4); MONOCYTES # (AUTO) 0.9 X10'3 (0-0.9); MONOCYTES % (AUTO) 8.1 % (2-12); NEUTROPHILS # (AUTO) 8.1 X10'3 (1.8-7.7); NEUTROPHILS % (AUTO) 76.9 % (42-75); PLATELET COUNT 216 X10'3 (140-440); RED BLOOD COUNT 3.43 X10'6 (4.70-6.10); RED CELL DISTRIBUTION WIDTH 14.2 % (11.5-14.5); WHITE BLOOD COUNT 10.5 X10'3 (4.5-11.0)
[2021-03-20 07:32] LABS: ALANINE AMINOTRANSFERASE 42 U/L (12-78); ALBUMIN 2.8 G/DL (3.4-5.0); ALBUMIN/GLOBULIN RATIO 0.7 (1.1-1.5); ALKALINE PHOSPHATASE 93 IU/L (46-116); ANION GAP 12 (8-16); ASPARTATE AMINO TRANSFERASE 31 U/L (10-37); BILIRUBIN,TOTAL 0.3 MG/DL (0.1-1.0); BLOOD UREA NITROGEN 22 MG/DL (7-18); BUN/CREATININE RATIO 21.4 (5.4-32.0); CALCIUM 8.3 MG/DL (8.5-10.1); CHLORIDE 102 MMOL/L (99-107); CREATININE 1.03 MG/DL (0.60-1.10); GLUCOSE 133 MG/DL (70-104); SODIUM 139 MMOL/L (135-145); TOTAL CARBON DIOXIDE 25.4 MMOL/L (24-32); TOTAL PROTEIN 6.7 G/DL (6.4-8.2); eGFR 69 ML/MIN
[2021-03-20] MEDS: lactobacillus rhamnosus 10,000 MMU CELLS/CAPSULE PO SCH ×2 (07:33→19:33)
[2021-03-20] MEDS: furosemide 20MG tablet PO SCH (07:33)
[2021-03-20] MEDS: sacubitril/valsartan 24mg-26mg tablet PO SCH ×2 (07:33→23:00)
[2021-03-20] MEDS: CefTRIAXone 2gm/D5W 50ml BAG 50 ML IV SCH (07:34)
[2021-03-20] MEDS: atorvastatin 20mg tablet PO SCH (07:34)
[2021-03-20] MEDS: heparin, porcine 5000 units/ml vial SQ SCH ×2 (07:34→19:34)
--- NOTE | 2021-03-20 07:49 | NUR ---
Page Sent PAGER ID: [phone] MESSAGE: DARREL [phone]-RE: CHRISTIANO RODRIGUEZ [id number]...CRITICAL LAB- POTASSIUM 3.0...NO PROTOCOL ORDERED
[2021-03-20] MEDS: insulin Lispro (HumaLOG) vial - multi-dose SQ SCH ×3 (07:56→19:24)
[2021-03-20] MEDS ORDERED: potassium Cl 20 mEq SR tablet PO PRN (08:25)
[2021-03-20] MEDS ORDERED: potassium Cl 40MEQ/1/2NS 520ml 520 ML IV PRN ×2 (08:25)
[2021-03-20] MEDS: potassium Cl 20 mEq SR tablet PO PRN ×3 (09:50→19:43)
[2021-03-20 10:00] VITALS: BP 114/66
--- NOTE | 2021-03-20 13:20 | NUR ---
Initial: Pt presented after a syncopal episode, admitted for RASHID. Pt on a heart healthy diet documented with average 0-25% PO intake not meeting estimated nutrient needs. Pt previously receiving an Ensure Enlive TID however was discontinued by MD 03/18. Pt seen at bedside reports low appetite. Pt provided with alternative menu to provide additional food options. Food preferences and dinner requests were obtained and d/w dietary, see below. Pt denies food allergies, difficulty chewing/swallowing, or constipation/diarrhea. LBM 03/19. Will continue to follow closely. Recommendations: 1) Advance to regular diet in view of poor PO intake; encourage PO intake 2) [place] food preferences: fruit TID, Sherbet BIDLD; no white bread 3) Pt would benefit from Ensure Enlive TID if MD agreeable 4) Bowel care per rx 5) Scaled weight this admit; weekly scaled weights thereafter Addendum: 03/20/21 at [address] Amended: Links added.
[2021-03-20 18:00] VITALS: BP 102/61
--- NOTE | 2021-03-20 18:13 | NUR ---
Problems reprioritized. Patient report given, questions answered & plan of care reviewed with HERNANDEZ SANDRA.
[2021-03-20] MEDS: K and/or MAG REPLACEMENT MC SCH (20:00)
[2021-03-20 21:00] VITALS: BP 95/63
[2021-03-20] MEDS: DOXEPIN 6 MG PO SCH (21:44)
[2021-03-20 23:00] VITALS: BP 90/66
[2021-03-20] MEDS: insulin glargine (Lantus) pen - multi-dose SQ SCH (23:00)
[2021-03-21] MEDS: albuterol 2.5 MG/3 ML nebule NEB SCH ×3 (02:55→14:40)
[2021-03-21] MEDS: HYDROcodone/acetaminophen 5mg/325mg tablet PO PRN ×2 (05:58→11:57)
[2021-03-21 06:00] VITALS: BP_SYST 109; BP_SYST 122; BP_DIAS 63; BP_DIAS 77
[2021-03-21] MEDS: K and/or MAG REPLACEMENT MC SCH (08:00)
[2021-03-21 08:50] LABS: ALANINE AMINOTRANSFERASE 49 U/L (12-78); ALBUMIN 2.8 G/DL (3.4-5.0); ALBUMIN/GLOBULIN RATIO 0.8 (1.1-1.5); ASPARTATE AMINO TRANSFERASE 37 U/L (10-37); BILIRUBIN,TOTAL 0.3 MG/DL (0.1-1.0); BLOOD UREA NITROGEN 19 MG/DL (7-18); BUN/CREATININE RATIO 19.2 (5.4-32.0); CALCIUM 8.1 MG/DL (8.5-10.1); CHLORIDE 102 MMOL/L (99-107); CREATININE 0.99 MG/DL (0.60-1.10); GLUCOSE 110 MG/DL (70-104); TOTAL CARBON DIOXIDE 22.2 MMOL/L (24-32); TOTAL PROTEIN 6.3 G/DL (6.4-8.2); eGFR 72 ML/MIN
[2021-03-21 08:56] LABS: ALKALINE PHOSPHATASE 93 IU/L (46-116); ANION GAP 12 (8-16); SODIUM 136 MMOL/L (135-145)
[2021-03-21] MEDS: lactobacillus rhamnosus 10,000 MMU CELLS/CAPSULE PO SCH (09:33)
[2021-03-21] MEDS: sacubitril/valsartan 24mg-26mg tablet PO SCH (09:34)
[2021-03-21] MEDS: atorvastatin 20mg tablet PO SCH (09:34)
[2021-03-21] MEDS: furosemide 20MG tablet PO SCH (09:34)
[2021-03-21] MEDS: heparin, porcine 5000 units/ml vial SQ SCH (09:34)
[2021-03-21 10:00] VITALS: BP 129/70
[2021-03-21] MEDS ORDERED: levoFLOXACIN 500mg tablet PO SCH (11:00)
--- NOTE | 2021-03-21 11:57 | NUR ---
scanner on computer not scanning meds into PCA Audit, checked all meds prior to admin, continue to monitor
--- NOTE | 2021-03-21 16:21 | NUR ---
Call to CM re lifevest battery on kiln charger, has not been on patient for a couple days? Send patient, Yari is familiar with life vest and is able to call Jesica with [employer]. [phone]
== END 2021-03-21 16:45 | DRG 682 ==
LOC: ER 22:22 → ED HOLD 03-15 00:32 → ORTHO 4S 03-15 04:30
PROVIDERS: ADMIT Internal Medicine; ATTEND Family Medicine
DX: N17.0 Acute kidney failure with tubular necrosis (principal); G93.41 Metabolic encephalopathy; I50.23 Acute on chronic systolic (congestive) heart failure; N39.0 Urinary tract infection, site not specified; E86.0 Dehydration; J44.9 Chronic obstructive pulmonary disease, unspecified; Z20.822 Contact with and (suspected) exposure to COVID-19; I95.9 Hypotension, unspecified; E11.40 Type 2 diabetes mellitus with diabetic neuropathy, unspecified; I11.0 Hypertensive heart disease with heart failure; E78.5 Hyperlipidemia, unspecified; B95.2 Enterococcus as the cause of diseases classified elsewhere; F03.90 Unspecified dementia, unspecified severity, without behavioral disturbance, psychotic disturbance, mood disturbance, and anxiety; B96.1 Klebsiella pneumoniae [K. pneumoniae] as the cause of diseases classified elsewhere; E87.5 Hyperkalemia; D72.829 Elevated white blood cell count, unspecified; M19.90 Unspecified osteoarthritis, unspecified site; Z87.891 Personal history of nicotine dependence; Z95.0 Presence of cardiac pacemaker
CPT/HCPCS: 36415; 70450; 71045; 76770; 80048; 80053; 81001; 81003; 82948; 83036; 83605; 83735; 83880; 84145; 84484; 85025; 87040; 87077; 87081; 87088; 87186; 87635; 92508; 92616; 93005; 93306; 94640; 94760; 97110; 97116; 97161; 97530; 99291; 99292; G0378; J0696; J1644; J1815; J7030; J7626